=== PATIENT | female | born 1930 | race Caucasian/White ===

== ENCOUNTER 2017-01-31 14:44 | Outpatient (CLI) | payer MEDICARE ==
--- NOTE | 2017-01-31 19:54 | RAD ---
LUMBAR SPINE: 01/31/17 Two views. HISTORY: Followup compression fracture. COMPARISON: 12/27/16 The compression deformity involving the L4 vertebra is again noted. There is loss of disc space at L 2-3 and L3-4 with inferior end plate deformity at L3. These findings are stable from the prior exam. Slight anterolisthesis at L3-4 appears to have progressed when compared to 12/27/16. The degree of compression of the L4 vertebra does not appear to have significantly changed. Aortic c alcification and ectasia again noted. IMPRESSION: 1. Increase in the anterolisthesis of L3 on L4 when compared to recent exam. 2. Compression of L4 does not appear significantly changed. POS: [facility]
== END 2017-01-31 14:45 | disposition home or self-care (01) ==
LOC: TBSIIMAG 14:44
PROVIDERS: ATTEND Neurological Surgery
DX: M48.56XA Collapsed vertebra, not elsewhere classified, lumbar region, initial encounter for fracture (principal); M43.16 Spondylolisthesis, lumbar region; M51.06 Intervertebral disc disorders with myelopathy, lumbar region
CPT/HCPCS: 72100

== ENCOUNTER 2017-03-21 15:38 | Outpatient (CLI) | payer MEDICARE ==
--- NOTE | 2017-03-21 16:50 | RAD ---
LUMBAR SPINE 3 VIEWS: HISTORY: An 86-year-old female with followup compression fracture. COMPARISON: 01/31/17. FINDINGS: Again noted is a moderate compression fracture of L4 with approximately 1.5 cm of anterolisthesis of L4 on L5 which is little changed from prior study. Disk space narrowing at L2-L3. Status post fco ectomy from L2 to L5. 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 Levoscoliosis of the upper lumbar lower thoracic vert ebral column. IMPRESSION: Marked but overall stable-appearing anterolisthesis of L3 on L4 with moderate compression fracture of L4 vertebral body. Stable laminectomy and scoliosis and spondylosis. POS: [facility]
== END 2017-03-21 15:39 | disposition home or self-care (01) ==
LOC: TBSIIMAG 15:38
PROVIDERS: ATTEND Physician Assistant
DX: M48.56XD Collapsed vertebra, not elsewhere classified, lumbar region, subsequent encounter for fracture with routine healing (principal); M47.896 Other spondylosis, lumbar region; Z98.1 Arthrodesis status
CPT/HCPCS: 72100